=== PATIENT | female | born 1975 | race Two or more races ===

== ENCOUNTER 2021-05-04 15:24 | Emergency (ER) | payer OTHER ==
[~2021-05-04] VITALS: Ht 152.4 cm; Wt 65.8 kg
[2021-05-04 15:34] VITALS: BP 131/81
[2021-05-04] MEDS ORDERED: IBUPROFEN 600 MG TABLET ONE (15:59)
[2021-05-04] MEDS ORDERED: IBUPROFEN 600 MG TABLET PO ONE (16:00)
--- NOTE | 2021-05-04 16:01 | NUR ---
urine collected and sent to lab.
--- NOTE | 2021-05-04 18:16 | NUR ---
Patient discharged to home in stable condition. Written and verbal after care instructions given. Patient verbalizes understanding of instruction.
== END 2021-05-04 18:17 | disposition home or self-care (01) ==
LOC: ER 15:30
DX: N88.8 Other specified noninflammatory disorders of cervix uteri (principal)
CPT/HCPCS: 76856-TC; 84703-TC; 87210-TC; 87491; 87591